=== PATIENT | female | born 1955 | race Caucasian/White ===

== ENCOUNTER → 2023-03-12 | Outpatient (CLI) | payer MEDICARE, OTHER ==
--- NOTE | 2023-03-12 12:33 | MR ---
EXAMINATION TYPE: MR lumbar spine wo con DATE OF EXAM: 03/12/2023 COMPARISON: 02/27/2020 HISTORY: Lower back pain, BLE radiculopathy x 3 years. TECHNIQUE: Multiplanar, multisequence images of the lumbar spine were acquired without IV contrast. L1-L2: Normal disc appearance without desiccation. No herniation, protrusion or disc bulging. No ca nal stenosis is present. Foramina are patent bilaterally. L2-L3: Moderate disc desiccation with posterior disc bulge mildly degree. Mild effacement ventral the dora sac. No evidence for herniation or central stenosis. Mild bilateral foraminal encroachment left g reater than right. L3-L4: Severe disc desiccation with vacuum disc. Broad-based posterior disc herniation effaces the ve ntral thecal sac. There is hypertrophy of the ligamentum flavum and severe facet joint arthropathy re sulting in moderate progressive central stenosis. There is moderate left foraminal encroachment. L4-L5: Severe disc desiccation with vacuum disc. Broad-based posterior disc herniation effaces the ve ntral thecal sac. There is hypertrophy of the ligamentum flavum and severe facet joint arthropathy re sulting in severe progressive central stenosis. There is mild bilateral foraminal encroachment. L5-S1: Severe disc desiccation with posterior disc bulge greatest paracentrally and to the right. The re is right lateral recess stenosis. Mild right foraminal encroachment noted. Lumbar segments are intact. No paraspinal masses are identified. Conus medullaris has a normal appe arance. IMPRESSION: 1. Progressive central stenosis at L3-4 and L4-5 as discussed.
== END | disposition home or self-care (01) ==
LOC: RADMRIMAIN 10:45
PROVIDERS: ATTEND Orthopaedic Surgery
DX: M48.061 Spinal stenosis, lumbar region without neurogenic claudication (principal); M51.17 Intervertebral disc disorders with radiculopathy, lumbosacral region; M47.26 Other spondylosis with radiculopathy, lumbar region; M99.73 Connective tissue and disc stenosis of intervertebral foramina of lumbar region
CPT/HCPCS: 72148